=== PATIENT | female | born 1970 | race African-American/Black ===

== ENCOUNTER 2018-07-17 13:13 | Inpatient (IN) ==
[~2018-07-17 13:13] MED LIST: ATARAX PO PRN; BENTYL PO PRN; D5W 1,000 ML IV PRN; DESYREL PO PRN; DULCOLAX PR PRN; IMODIUM PO PRN; MAALOX PLUS LIQUID PO PRN; MOTRIN PO PRN; NICODERM PATCH TD PRN; PHENOBARBITAL IV PRN; ROBAXIN PO PRN; SALINE LOCK IV FLUID XX ONE; SENOKOT PO PRN; SEROQUEL PO PRN; TUBERSOL ID ONE; TYLENOL PO PRN; ZOFRAN IV PRN; ZOFRAN ODT PO PRN
[2018-07-17 14:41] LABS: HEMATOCRIT 35.9 % (37.0-47.0); HEMOGLOBIN 11.9 g/dL (12.0-16.0); MCH 29.7 PG (27-31); MCHC 33.1 g/dL (33-37); MCV 89.5 FL (81-99); MPV 10.7 FL (7.4-10.4); RBC 4.01 XMIL (4.2-5.4); RDW 13.5 % (11.5-14.5); WBC 8.6 X1000 (4.8-10.8)
[2018-07-17 14:44] LABS: URINE SOURCE VOIDED
[2018-07-17 14:50] LABS: BILIRUBIN URINE NEGATIVE (NEGATIVE); BLOOD URINE 2+ (NEGATIVE); CLARITY CLEAR (CLEAR); COLOR YELLOW; GLUCOSE URINE NEGATIVE (NEGATIVE); KETONE URINE NEGATIVE (NEGATIVE); LEUKOCYTES URINE NEGATIVE (NEGATIVE); NITRITE URINE NEGATIVE (NEGATIVE); PH URINE 6.5; PROTEIN URINE NEGATIVE (NEGATIVE); SP GRAVITY URINE 1.015; UROBILINOGEN URINE 1 mg/dL
[2018-07-17 14:52] LABS: URINE BACTERIA 2+ /HFP; URINE CAST NONE SEEN /LPF; URINE CRYSTAL NONE SEEN /HPF; URINE RBC <10 /HPF (<10); URINE TRICHOMONAS PRESENT; URINE WBC <10 /HPF (<10); URINE YEAST NONE SEEN /HPF
[2018-07-17 14:53] LABS: URINE EPITHELIAL CELLS >10 /HPF (<10)
[2018-07-17 14:56] LABS: INR 0.94
[2018-07-17 14:57] LABS: UR AMPHETAMINES QUAL NONE DETECTED (NONE DETECT); UR BARBITUATES QUAL NONE DETECTED (NONE DETECT); UR BENZODIAZEPIN QUAL NONE DETECTED (NONE DETECT); UR CANNABINOIDS QUAL NONE DETECTED (NONE DETECT); UR COCAINE QUAL PRESUMPTIVE POSITIVE (NONE DETECT); UR METHADONE QUAL NONE DETECTED (NONE DETECT); UR METHAMPHETAMINE QUAL NONE DETECTED (NONE DETECT); UR OPIATES QUAL NONE DETECTED (NONE DETECT); UR OXYCODONE QUAL NONE DETECTED (NONE DETECT); UR PCP QUAL NONE DETECTED (NONE DETECT); UR PROPOXYPHENE QUAL NONE DETECTED (NONE DETECT); UR TCA QUAL NONE DETECTED (NONE DETECT)
[2018-07-17 15:02] LABS: AMYLASE 46 U/L (20-200); LIPASE 35 U/L (13-60)
[2018-07-17 15:09] LABS: AGAP 8; ALBUMIN 3.4 g/dL (3.5-5.0); ALKALINE PHOSPHATASE 52 U/L (32-104); BUN 9 mg/dL (8-22); CALCIUM 7.9 mg/dL (8.8-10.2); CHLORIDE 106 mmol/L (98-107); COSMO 279; CREATININE 0.6 mg/dL (0.5-0.9); ESTIMATED GFR > 60; GLUCOSE 86 mg/dL (70-104); GOT 16 U/L (10-30); GPT 11 U/L (10-36); POTASSIUM 4.2 mmol/L (3.5-5.1); SODIUM 141 mmol/L (136-145); TCO2 27 mmol/L (25-35); TOTAL BILIRUBIN < 0.15 mg/dL (0.20-1.00)
[2018-07-17] MEDS ORDERED: M.V.I.-12 10 ML, FOLIC ACID 1 MG, MAGNESIUM SULFATE 1 GM, THIAMINE 100 MG in NS 1,000 ML IV ONE (15:30)
[2018-07-17] MEDS: LIBRIUM PO SCH ×2 (17:12→19:57)
[2018-07-17 17:55] LABS: I-STAT CREATININE 0.8 mg/dL (0.6-1.3)
[2018-07-18] MEDS: LIBRIUM PO SCH ×2 (03:47→08:07)
[2018-07-18] MEDS: PROTONIX PO SCH ×2 (06:11→08:05)
[2018-07-18] MEDS ORDERED: VITAMIN B-1 PO SCH (09:00)
[2018-07-18] MEDS ORDERED: FOLIC ACID PO SCH (09:00)
[2018-07-18] MEDS ORDERED: THERA M PLUS PO SCH (09:00)
[2018-07-18 11:46] VITALS: BP 110/68
--- NOTE | 2018-07-18 19:34 | HISTORY AND PHYSICAL ---
CHIEF COMPLAINT: Nausea and vomiting. HISTORY OF PRESENT ILLNESS: Patient is a 47-year-old female who presented to [facility] secondary to nausea, vomiting, abdominal pain, myalgias and paresthesias. SOCIAL HISTORY: Patient is single. She is unemployed. Lives at home in [place]. 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 MEDICATIONS: No prescription medicines. ALLERGIES: Celebrex, iodine, penicillin. REVIEW OF SYSTEMS: CINA score is elevated at 9, significant to crampy abdominal pain, nausea, vomiting, diarrhea, muscle aches, frequent muscle pain, moderately fidgety, anxious unable to sit still having some tremors and eye watering, frequent yawning. Denies any headaches, blurred vision, or change in her vision. Neurologic: No focal neurological changes. SUBSTANCE ABUSE HISTORY: The patient has a longstanding history of substance abuse. In 1998. She was at [facility] as well as in 1999 she was at [facility]. In 2010 and in early 2018. she was in treatment for cocaine and alcohol abuse. She stayed in March of this year for 7 days and in 2010 stayed for 6 months. Started drinking in 1984, currently drinking a pint a day. Started smoking crack in 1997, currently uses an 8-ball a day. Started smoking cigarettes at in 1984, currently smokes half pack a day. FAMILY HISTORY: Noncontributory. PHYSICAL EXAMINATION: VITAL SIGNS: Reviewed and stable. GENERAL: Patient is awake, alert. She is in no current respiratory distress. HEENT: Normocephalic, atraumatic. AROLDO. NECK: Supple. No JVD. CARDIOVASCULAR: Regular rate. No murmurs. CHEST: Clear, nonlabored. ABDOMEN: Soft, nondistended, nontender. EXTREMITIES: Moves all extremities. NEUROLOGICAL: No focal neurological changes. SKIN: Warm, dry. No rash. ASSESSMENT: 1. Nausea and vomiting. 2. Abdominal pain. 3. Myalgias. 4. Paresthesias. 5. Paroxysmal sweating. 6. Opiate abuse withdrawal and stabilization. PLAN: We will admit patient to the hospital, begin counseling. We will place her on treatment for cocaine abuse. We will use high-dose Librium. We will wean as tolerated. cc: Emigdio Holloway MD
--- NOTE | 2018-07-18 21:26 | DISCHARGE SUMMARY ---
ADMISSION DATE: 07/17/2018 DISCHARGE DATE: 07/18/2018 HOSPITAL COURSE: The patient apparently left AMA. Therefore, no discharge planning or instructions were able to be done. cc: Emigdio Holloway MD
== END 2018-07-18 12:25 | disposition left against medical advice (07) | DRG 894 ==
LOC: P.MEDSURG 13:13
PROVIDERS: ADMIT Family Medicine; ATTEND Family Medicine
CPT/HCPCS: 80053; 80104; 80301; 80305; 80307; 80320; 81001; 82055; 82150; 82565; 83690; 84520; 84703; 85027; 85610; 86580; 87088; A9270; G0431; G0434; G0477; G0480; G6040; J3411; J3475; J7030